=== PATIENT | male | born 1970 | race Hispanic/Latino ===

== ENCOUNTER 2020-10-04 12:02 | Emergency (ER) | payer MEDICARE ==
[2020-10-04] MEDS ORDERED: PANTOPRAZOLE 40 MG INJ IV ONE (12:30)
[2020-10-04] MEDS ORDERED: ONDANSETRON 4 MG/2 ML INJ IV ONE (12:30)
[2020-10-04] MEDS ORDERED: SODIUM CHLORIDE 0.9% 1000 ML 1,000 ML IV ONE (12:30)
[2020-10-04] MEDS ORDERED: MORPHINE 4 MG/1 ML INJ IV ONE (12:37)
--- NOTE | 2020-10-04 12:41 | Emergency Department Report ---
ED Abdominal Pain HPI - General Chief Complaint: Abdominal Pain Stated Complaint: ABD PAIN Time Seen by Provider: 10/04/20 12:27 Source: patient, EMS Mode of arrival: Ambulatory Limitations: No Limitations - History of Present Illness Initial Comments: Patient is 49 years old male with no significant past medical history. Patient presented to the ER by EMS from home for evaluation of sudden onset of abdominal pain, left lower quadrant with no radiation. Patient describes his pain as crampy 10 out of 10. Patient stated that he ate fish last night for dinner and he woke up with the symptoms. Patient is actively vomiting in the emergency room. Patient also stated that he has been having cough for the last few days. Patient denied any fever or chills. MD Complaint: abdominal pain - Related Data Previous Rx's Medication Instructions Recorded Last Taken Type Ibuprofen [Motrin] 800 mg PO TID PRN #14 tablet 01/02/13 Unknown Rx Allergies Allergy/AdvReac Type Severity Reaction Status Date / Time Penicillins AdvReac Hives Verified 01/02/13 19:24 ED Review of Systems ROS: Stated complaint: ABD PAIN Other details as noted in HPI Comment: All other systems reviewed and negative Constitutional: denies: chills, fever Respiratory: cough. denies: shortness of breath, SOB with exertion, SOB at rest Cardiovascular: denies: chest pain, palpitations Gastrointestinal: abdominal pain, nausea, vomiting, diarrhea. denies: hematemesis, melena, hematochezia Musculoskeletal: denies: back pain Neurological: weakness. denies: headache, numbness, paresthesias, confusion ED Past Medical Hx - Past Medical History Previous Medical History?: Yes Hx Diabetes: Yes Hx Psychiatric Treatment: Yes (Bipolar) - Surgical History Additional Surgical History: right wrist surgery - Social History Smoking Status: Never Smoker Substance Use Type: None - Medications Home Medications: Home Medications Medication Instructions Recorded Confirmed Last Taken Type Ibuprofen [Motrin] 800 mg PO TID PRN #14 tablet 01/02/13 Unknown Rx ED Physical Exam - General Limitations: No Limitations General appearance: alert, other (actively vomiting) - Head Head exam: Present: atraumatic - Eye Eye exam: Present: normal appearance - ENT ENT exam: Present: mucous membranes dry - Neck Neck exam: Present: normal inspection, full ROM. Absent: tenderness, meningismus - Respiratory Respiratory exam: Present: normal lung sounds bilaterally - Cardiovascular Cardiovascular Exam: Present: regular rate, normal rhythm, normal heart sounds - GI/Abdominal GI/Abdominal exam: Present: soft, normal bowel sounds. Absent: distended, tenderness, guarding, rebound, rigid, organomegaly, mass, bruit, pulsatile mass, hernia - Extremities Exam Extremities exam: Present: normal inspection, full ROM, normal capillary refill. Absent: tenderness - Back Exam Back exam: Present: normal inspection, full ROM. Absent: CVA tenderness (R), CVA tenderness (L) - Neurological Exam Neurological exam: Present: alert, oriented X3, CN II-XII intact, normal gait, reflexes normal. Absent: motor sensory deficit - Psychiatric Psychiatric exam: Present: normal mood - Skin Skin exam: Present: warm, intact, normal color ED Course Vital Signs 10/04/20 12:29 Pulse Rate 79 Respiratory 11 L Rate O2 Sat by Pulse 99 Oximetry ED Medical Decision Making - Lab Data Result diagrams: 10/04/20 12:48 10/04/20 12:48 - Radiology Data Radiology results: report reviewed - Medical Decision Making Patient is 49 years old male with no significant past medical history. Patient presented to the ER by EMS from home for evaluation of sudden onset of abdominal pain, left lower quadrant with no radiation. Patient describes his pain as crampy 10 out of 10. Patient stated that he ate fish last night for dinner and he woke up with the symptoms. Patient is actively vomiting in the emergency room. Patient also stated that he has been having cough for the last few days. Patient denied any fever or chills. Patient received morphine, Zofran and Protonix. Labs reviewed and is unremarkable. CT abdomen and pelvis with IV contrast showed a 3 mm distal ur eteric stone with mild right ureterohydronephrosis. Patient also received Toradol 60 IM. Patient given , urologist to follow-up. Patient also given prescription for Percocet and Zofran and advised to return to the ER if he develop any new symptoms. Critical care attestation.: If time is entered above; I have spent that time in minutes in the direct care of this critically ill patient, excluding procedure time. ED Disposition Clinical Impression: Acute abdominal pain, Ureteral stone with hydronephrosis Disposition: HOME / SELF CARE / HOMELESS Is pt being admited?: No Condition: Stable Instructions: Abdominal Pain, Adult, [id number], Renal Colic, [id number] Referrals: DIANNA CAMEJO MD [Staff Physician] - 3-5 Days Forms: AMA Form
[2020-10-04] MEDS ORDERED: METOCLOPRAMIDE 10 MG/2 ML INJ ONE (12:45)
[2020-10-04] MEDS ORDERED: METOCLOPRAMIDE 10 MG/2 ML INJ IV ONE (12:57)
--- NOTE | 2020-10-04 13:01 | XRay Report ---
CHEST 1 VIEW INDICATION / CLINICAL INFORMATION: cough/Abdominal Pain STUDY TIME: 1253 COMPARISON: None available. FINDINGS: SUPPORT DEVICES: None HEART / MEDIASTINUM: No significant abnormality. LUNGS / PLEURA: No significant pulmonary or pleural abnormality. No pneumothorax. ADDITIONAL FINDINGS: No significant additional findings. IMPRESSION: No significant acute abnormality Signer Name: Mohan Marshall MD Signed: 10/04/2020 12:57 PM Workstation Name: [id number]
[2020-10-04 13:07] LABS: Bilirubin,Urine NEG (Negative); Blood,Urine SM (Negative); Color,Urine Yellow (Yellow); Mucus,Urine FEW /HPF; Urobilinogen,Urine < 2.0 mg/dL (<2.0)
[2020-10-04 13:15] LABS: Amphetamine Screen,Urine Negative; Benzodiazepines Screen,Urine Negative; Cocaine Screen,Urine Negative; Methadone Screen,Urine Negative; Opiate Screen,Urine Negative
[2020-10-04 13:19] LABS: Basophils # (Auto) 0.1 K/mm3 (0.0-0.1); Basophils % (Auto) 0.4 % (0.0-1.8); Eosinophils # (Auto) 0.1 K/mm3 (0.0-0.4); Eosinophils % (Auto) 0.4 % (0.0-4.3); Hematocrit 44.6 % (35.5-45.6); Hemoglobin 14.8 gm/dl (11.8-15.2); Lymphocytes # (Auto) 1.5 K/mm3 (1.2-5.4); Lymphocytes % (Auto) 9.7 % (13.4-35.0); Mean Corpuscular HGB Conc 33 % (32-34); Mean Corpuscular Volume 97 fl (84-94); Monocytes # (Auto) 1.1 K/mm3 (0.0-0.8); Monocytes % (Auto) 7.2 % (0.0-7.3); Platelet Count 306 K/mm3 (140-440); Red Blood Count 4.61 M/mm3 (3.65-5.03); Red Cell Distribution Width 13.7 % (13.2-15.2)
[2020-10-04 13:37] LABS: Cannabinoid Screen,Urine PRESUMPTIVE POSITIVE
[2020-10-04 13:37] LABS: Alanine Aminotransferase 19 units/L (7-56); Albumin 4.4 g/dL (3.9-5); BUN/Creatinine Ratio 16; Bilirubin,Direct < 0.2 mg/dL (0-0.2); Blood Urea Nitrogen 14 mg/dL (9-20); Calcium 9.5 mg/dL (8.4-10.2); Hemolysis Index 15
--- NOTE | 2020-10-04 14:36 | Cat Scan Report ---
CT ABDOMEN AND PELVIS WITH CONTRAST HISTORY: Abdominal pain COMPARISON: None TECHNIQUE: Routine abdominal and pelvic CT exam performed following intravenous contrast administrat ion.. All CT scans at this location are performed using CT dose reduction for ALARA by means of autom ated exposure control. FINDINGS: CT ABDOMEN: Lung Bases: No significant abnormality. Liver: No significant abnormality. Biliary: No significant abnormality. Spleen: No significant abnormality. Unenlarged. Pancreas: No significant abnormality. Adrenals: No significant abnormality. Kidneys: There is mild right hydroureteronephrosis due to a 3 mm distal right ureteral stone. Lymphatics: No lymphadenopathy. Vasculature: Atherosclerotic but nonaneurysmal abdominal aorta. Bowel/Peritoneum: No significant abnormality. No free air. No free fluid. CT PELVIC: : No significant abnormality. Lymphatics: No lymphadenopathy. Osseous Structures: No aggressive appearing osseous lesions. Additional Findings: None IMPRESSION: 1. Mild right hydroureteronephrosis due to a 3 mm distal right ureteral stone. Signer Name: Crispin Miguel MD Signed: 10/04/2020 2:32 PM Workstation Name: [id number]
[2020-10-04] MEDS ORDERED: KETOROLAC 60 MG/2 ML INJ IM ONE (15:09)
[2020-10-04 17:59] VITALS: BP 124/76
== END 2020-10-04 17:59 | disposition home or self-care (01) ==
LOC: ED 12:02
DX: N13.2 Hydronephrosis with renal and ureteral calculous obstruction (principal); R10.32 Left lower quadrant pain; E11.8 Type 2 diabetes mellitus with unspecified complications; F31.9 Bipolar disorder, unspecified; Z98.890 Other specified postprocedural states
CPT/HCPCS: 36415; 71045; 74177; 80048; 80076; 80307; 81001; 82962; 83690; 85025; 96372; 96374; 96375; 99285; C9113; J1885; J2270; J2405; J2765; J7030; Q9967